=== PATIENT | female | born 1965 | race Two or more races ===

== ENCOUNTER 2022-09-28 04:13 | Emergency (ER) | payer MEDICAID ==
[2022-09-28] MEDS ORDERED: Ketorolac 30 MG/ML SDV IM ONE (04:49)
== END 2022-09-28 05:58 | disposition home or self-care (01) ==
LOC: FB.ED 04:13
DX: R07.1 Chest pain on breathing (principal); F17.200 Nicotine dependence, unspecified, uncomplicated; I25.10 Atherosclerotic heart disease of native coronary artery without angina pectoris
CPT/HCPCS: 93005; 96372; 99284; J1885